=== PATIENT | female | born 1975 | race Caucasian/White ===

== ENCOUNTER 2022-01-31 07:03 | Day surgery (SDC) | payer BC ==
[~2022-01-31 07:03] MED LIST: Lactated Ringers 1,000 ML IV SCH; Sodium Chloride 0.9% 10 ML Syringe FLUSH PRN
[2022-01-31] MEDS ORDERED: Glycopyrrolate 0.2 MG/ML 5 ML MDV IV ONE (07:04)
[2022-01-31] MEDS ORDERED: Propofol 200 MG/20 ML SDV IV ONE (07:04)
== END 2022-01-31 09:44 | disposition home or self-care (01) ==
LOC: FB.SDS 07:03
PROVIDERS: ATTEND Surgery
DX: Z12.11 Encounter for screening for malignant neoplasm of colon (principal); D12.6 Benign neoplasm of colon, unspecified; F41.9 Anxiety disorder, unspecified; F32.A Depression, unspecified; Z87.19 Personal history of other diseases of the digestive system; Z83.71 Family history of colonic polyps; Z79.899 Other long term (current) drug therapy; Z90.49 Acquired absence of other specified parts of digestive tract; Z98.890 Other specified postprocedural states
CPT/HCPCS: 00812; 45385; 88305; J2704; J3490; J7120

== ENCOUNTER 2025-01-07 06:11 | Day surgery (SDC) | payer BC ==
[2025-01-07] MEDS ORDERED: Propofol 200 MG/20 ML SDV IV ONE (06:12)
[2025-01-07] MEDS ORDERED: Sodium Chloride 0.9% 10 ML Syringe FLUSH PRN (06:15)
[2025-01-07] MEDS: Lactated Ringers 1,000 ML IV SCH (06:53)
== END 2025-01-07 08:40 | disposition home or self-care (01) ==
LOC: FB.SDS 06:11
PROVIDERS: ATTEND Surgery
DX: Z12.11 Encounter for screening for malignant neoplasm of colon (principal); D12.2 Benign neoplasm of ascending colon; F41.9 Anxiety disorder, unspecified; F32.A Depression, unspecified; Z86.0101 Personal history of adenomatous and serrated colon polyps; Z79.899 Other long term (current) drug therapy
CPT/HCPCS: 00811; 88305; A9270-GY; J2704; J7120